=== PATIENT | male | born 1950 | race Caucasian/White ===

== ENCOUNTER 2016-03-05 18:50 | Inpatient (IN) ==
--- NOTE | 2016-03-05 19:33 | Emergency Department Note ---
Disposition Clinical Impression: Hilar mass, Pathologic rib fracture Saddle embolism of pulmonary artery Qualifiers: Chronicity: acute Acute cor pulmonale presence: without acute cor pulmonale Qualified Code(s): I26.92 - Saddle embolus of pulmonary artery without acute cor pulmonale DVT (deep venous thrombosis) Qualifiers: DVT location: lower extremity Affected thrombotic vein of extremity: unspecified vein of extremity Laterality: right Chronicity: acute Qualified Code (s): I82.401 - Acute embolism and thrombosis of unspecified deep veins of right lower extremity Disposition: Admitted As Inpatient Condition: Fair Referrals: Linette Teran DO [Primary Care Provider] - Forms: ED Satisfaction Letter General Adult HPI - General Chief complaint: ED Extremity Problem,Nontraumatic Stated complaint: POSS DVT RLE Time Seen by Provider: 03/05/16 19:26 Source: patient, family Mode of arrival: ambulatory Limitations: no limitations Nursing Notes Reviewed: Yes Vital Signs Reviewed: Yes - History of Present Illness HPI Narrative: 65 y/o male w/ 3 days of RLE pain/swelling. Went to PCP who diagnosed DVT by [facility]/ [facility] at [facility] in [place]. Was told to be evaluated by a higher level of care so he presented to our emergency department. In further discussion with the patient he does admit to approximately one week of dyspnea. He denies any chest pain. Past medical history significant for atrial fibrillation, diabetes , hypertension, hyperlipidemia. He is not anticoagulated for his atrial fibrillation. His dyspnea is worse with exertion. He does have a significant history of right lung cancer for which she had a lobectomy approximately a year and a half ago in [place]. He denies any current cough or sputum production. Radiation: non-radiation Pain Scale: 2 Associated symptoms: Reports: denies other symptoms Treatments Prior to Arrival: none - Related Data Allergies Allergy/AdvReac Type Severity Reaction Status Date / Time metronidazole [From Flagyl] AdvReac Rash Verified 03/05/16 19:03 All systems ED: reviewed and negative except as stated. Eyes: Denies: vision change ENT ED: Denies: throat pain Cardiovascular: Reports: dyspnea on exertion Respiratory: Reports: dyspnea. Denies: cough Gastrointestinal: Denies: abdominal pain, nausea, vomiting Genitourinary: Denies: dysuria Musculoskeletal: Denies: back pain Integumentary: Denies: rash Neurological: Denies: headache Past Medical History - Past Medical History Medical history: Reports: atrial fibrillation, cancer, DVT, diabetes, hypertension Psychiatric history: Reports: no psych history - Social History Smoking Status: Former smoker Smokeless Tobacco Status: No Alcohol use: Reports: none Drug use: Reports: none Physical Exam - General Limitations: no limitations General appearance: alert, in no apparent distress - Head Head exam: atraumatic - Eye Eye exam: Present: normal appearance, PERRL, EOMI - ENT ENT exam: normal exam, normal oropharynx - Neck Neck exam: Present: normal inspection, full ROM - Chest Chest inspection: Present: normal inspection - Respiratory Respiratory exam: Present: other (diminished breath sounds in RLL). Absent: respiratory distress, wheezes - Cardiovascular Cardiovascular exam: Present: regular rate - Abdominal Exam Abdominal exam: Present: soft, Non-Tender - Extremities Exam Extremities exam: Present: other (pain on palpatin of right calf. Minimal edema. Pulses intact and symmetrical bilaterally. Good cap refill.) - Neurological Exam Neurological exam: Present: alert, oriented X3, CN II-XII intact - Psychiatric Psychiatric exam: Present: normal affect, normal mood - Skin Skin exam: Present: warm, dry Course Course Narrative: The patient is in absolutely no distress. He is asking when he gets to go home. Due to his dyspnea I concern for pulmonary embolism so we will obtain a CTA of the chest. I will also obtain basic cardiac labs for further workup of etiologies of dyspnea. Will obtain records for [facility]. Normal vitals, not hypoxic/tachy. - Reevaluation(s) Reevaluation #1: Called by radiology due to saddle embolism. Also a hilar mass with associated 5th rib fracture. He is hemodynamically stable with minimal symptoms. Will call for admission and start anticoagulation. Accepted for admission by [facility]. Vital Signs Temperature 98.1 F 03/05/16 19:03 Pulse Rate 88 03/05/16 19:03 Respiratory Rate 18 03/05/16 19:03 Blood Pressure 131/70 03/05/16 19:03 O2 Sat by Pulse Oximetry 95 03/05/16 19:03 Temperature 98.1 F 03/05/16 19:03 Pulse Rate 88 03/05/16 19:03 Respiratory Rate 18 03/05/16 19:03 Blood Pressure 131/70 03/05/16 19:03 O2 Sat by Pulse Oximetry 95 03/05/16 19:03 Oxygen Delivery Oxygen Delivery Room Air Medical Decision Making - Medical Records Medical records reviewed: Yes I reviewed the patient's medical records. - Lab Data Lab results reviewed: Yes I reviewed the patient's lab results. Result diagrams: 03/05/16 19:51 03/05/16 19:51 Lab Results 03/05/16 03/05/16 03/05/16 Range/Units 19:51 19:51 19:51 WBC 11.1 (4.3-11.1) K/mcL RBC 4.98 (4.19-5.50) M/mcL Hgb 14.6 (12.9-16.9) g/dL Hct 42.3 (37.5-50.1) % MCV 84.9 (83.0-100.0) fL MCH 29.3 (28.0-33.3) pg MCHC 34.5 (31.6-35.5) g/dL RDW 12.6 (11.5-14.5) % Plt Count 202 (140-400) K/mcL MPV 9.2 L (9.4-12.4) fL Immature Gran % 0.4 (0-4) % Seg Neutrophils % 57.7 % Lymphocytes % 30.9 % Monocytes % 7.3 % Eosinophils % 3.3 % Basophils % 0.4 % Neutrophils # 6.4 (1.6-8.9) K/mcL Lymphocytes # 3.4 (0.6-4.6) K/mcL Monocytes # 0.8 (0.0-1.3) K/mcL Eosinophils # 0.4 (0.0-0.6) K/mcL Basophils # 0.0 (0.0-0.2) K/mcL PT 12.5 H (9.4-12.1) Seconds INR 1.2 APTT 27.4 (26.0-36.0) Seconds Sodium 138 (136-145) mEq/L Potassium 4.3 (3.5-4.5) mEq/L Chloride 105 (98-109) mEq/L Carbon Dioxide 21 (19-29) mEq/L BUN 14 (8-26) mg/dL Creatinine 1.04 (0.72-1.25) mg/dL Est GFR ( Amer) > 60 (> 60) Est GFR (Non-Af Amer) > 60 (> 60) BUN/Creatinine Ratio 13 (6-26) Glucose 249 H (70-99) mg/dL Calculated Osmolality 295 (280-300) Calcium 9.7 (8.6-10.8) mg/dL Troponin I (0-0.03) ng/mL B-Natriuretic Peptide (0-100) pg/mL 03/05/16 03/05/16 Range/Units 19:51 19:51 WBC (4.3-11.1) K/mcL RBC (4.19-5.50) M/mcL Hgb (12.9-16.9) g/dL Hct (37.5-50.1) % MCV (83.0-100.0) fL MCH (28.0-33.3) pg MCHC (31.6-35.5) g/dL RDW (11.5-14.5) % Plt Count (140-400) K/mcL MPV (9.4-12.4) fL Immature Gran % (0-4) % Seg Neutrophils % % Lymphocytes % % Monocytes % % Eosinophils % % Basophils % % Neutrophils # (1.6-8.9) K/mcL Lymphocytes # (0.6-4.6) K/mcL Monocytes # (0.0-1.3) K/mcL Eosinophils # (0.0-0.6) K/mcL Basophils # (0.0-0.2) K/mcL PT (9.4-12.1) Seconds INR APTT (26.0-36.0) Seconds Sodium (136-145) mEq/L Potassium (3.5-4.5) mEq/L Chloride (98-109) mEq/L Carbon Dioxide (19-29) mEq/L BUN (8-26) mg/dL Creatinine (0.72-1.25) mg/dL Est GFR ( Amer) (> 60) Est GFR (Non-Af Amer) (> 60) BUN/Creatinine Ratio (6-26) Glucose (70-99) mg/dL Calculated Osmolality (280-300) Calcium (8.6-10.8) mg/dL Troponin I 0.00 (0-0.03) ng/mL B-Natriuretic Peptide 22 (0-100) pg/mL - Radiology Data Radiology results reviewed: Yes I reviewed the patient's radiology results. - EKG Data EKG #1 EKG attestation: Yes I reviewed and interpreted this EKG. EKG shows normal: sinus rhythm Rate: normal Rhythm: NSR [place]/QRS: normal Interpretation: no acute changes Critical Care Time Critical Care Time: Yes Total Critical Care Time: 40 Attestation: Critical care performed: Time is exclusive of separately billable procedures. Time includes: direct patient care, patient reassessment, coordination of patient care, interpretation of data (laboratory data, radiology data, and respiratory data), review of patient's medical records, medical consultation and documentation of patient care. Procedures included in critical care time: Procedures excluded from critical care time: Attestation Statement - Attestation Attestation: I, Adis Cherry MD, personally performed a history and physical exam of the patient and discussed their management with the resident. I reviewed the resident's note and agree with the documented findings, medical decision making , and plan of care. 65-year-old male who presents complaining of right calf pain and swelling of the right lower leg for 3 days prior to arrival. He was seen by his PCP and had an outpatient Doppler study of the right leg earlier today at another facility which was positive for DVT in the right calf. He has a prior history of DVT in the same calf several years ago which was treated with Coumadin. He is no longer on anticoagulants. He was prescribed Xarelto by his PCP today but has not started the medication yet. He was advised by his PCP to come here for further evaluation because apparently the report from the DVT study said that the thrombus was mobile. According to patient his PCP was concerned that he might have vascular surgeon. Patient does admit to some intermittent shortness of breath over the past few weeks. No chest pain or palpitations. No fever. On examination the patient is a well-developed well-nourished well-appearing elderly male in no acute distress. He is alert and oriented 3. There is no cyanosis or diaphoresis. Breath sounds are clear and equal bilaterally. Heart regular rate and rhythm. Abdomen soft and nontender normal bowel sounds. The right calf is swollen and is 4 cm larger than the left calf. There is some mild posterior mid calf tenderness with no palpable cords. No tenderness in the knee. There is no erythema or warmth to touch. EKG shows a normal sinus rhythm with a rate of 82 and nonspecific T-wave abnormality. Labs reviewed and unremarkable. CTA shows no pulmonary embolism with a saddle embolus. It also showed a right hilar mass or adenopathy with a fracture of the right fifth rib which on chest x-ray appeared to be a pathologic fracture. Patient was started on heparin in the emergency department. The hospitalist, Dr. Mesa, was consulted and accepted admission of the patient.
[2016-03-05 19:58] LABS: Basophils % 0.4 %; Eosinophils # 0.4 K/mcL (0.0-0.6); Eosinophils % 3.3 %; Hematocrit 42.3 % (37.5-50.1); Hemoglobin 14.6 g/dL (12.9-16.9); Immature Granulocytes % 0.4 % (0-4); Lymphocytes # 3.4 K/mcL (0.6-4.6); Lymphocytes % 30.9 %; Mean Corpuscular HGB Conc 34.5 g/dL (31.6-35.5); Mean Corpuscular Hemoglobin 29.3 pg (28.0-33.3); Mean Corpuscular Volume 84.9 fL (83.0-100.0); Mean Platelet Volume 9.2 fL (9.4-12.4); Monocytes # 0.8 K/mcL (0.0-1.3); Monocytes % 7.3 %; Neutrophils # 6.4 K/mcL (1.6-8.9); Platelet Count 202 K/mcL (140-400); Red Blood Count 4.98 M/mcL (4.19-5.50); Red Cell Distribution Width 12.6 % (11.5-14.5); Segmented Neutrophils % 57.7 %
[2016-03-05 20:07] LABS: INR 1.2; Prothrombin Time 12.5 Seconds (9.4-12.1)
[2016-03-05 20:10] LABS: Activated Partial Thrombo Time 27.4 Seconds (26.0-36.0)
[2016-03-05 20:12] LABS: BUN/Creatinine Ratio 13 (6-26); Blood Urea Nitrogen 14 mg/dL (8-26); Calcium 9.7 mg/dL (8.6-10.8); Carbon Dioxide 21 mEq/L (19-29); Chloride 105 mEq/L (98-109); Glucose 249 mg/dL (70-99); Osmolality,Calculated 295 (280-300); Potassium 4.3 mEq/L (3.5-4.5); Sodium 138 mEq/L (136-145); eGFR For African Americans > 60 (> 60); eGFR For Non-African Americans > 60 (> 60)
[2016-03-05] MEDS ORDERED: *HR* Heparin 5,000 UNIT/ML VIAL IVP ONE (21:18)
[2016-03-05] MEDS ORDERED: *HR* Heparin 5,000 UNIT/ML VIAL IVP PRN ×2 (21:18)
[2016-03-05] MEDS: Heparin 25,000 UNIT/500 ML D5W 25,000 UNIT/500 ML MLS IVC SCH (21:43)
[2016-03-05] MEDS ORDERED: Ibuprofen 400 MG TABLET PO PRN (22:25)
[2016-03-05] MEDS ORDERED: *HR* HYDROcodone/Acet 5/325 mg TABLET PO PRN (22:25)
[2016-03-05] MEDS ORDERED: Naloxone 0.4 MG/ML INJ IVP PRN (22:25)
[2016-03-05] MEDS ORDERED: Ondansetron 4 MG/2 ML VIAL IVP PRN (22:25)
[2016-03-05] MEDS ORDERED: MOM Conc 10 ML UD.LIQ PO PRN (22:25)
--- NOTE | 2016-03-05 22:43 | Internal Med History&Physical ---
Date of Encounter: 03/06/16 Time of Encounter: 21:40 Assessment and Plan (1) DVT (deep venous thrombosis) Current visit: Yes Status: Acute PT with 3 day h/o RLE pain and swelling. Doppler done at [facility] in [place]. Pt 12.5 seconds, INR 1.2. Heparin bolus and gtt Monitor labs Continuous director cardiac Continuous pulse oximetry Bed rest Qualifiers: DVT location: lower extremity Affected thrombotic vein of extremity: unspecified vein of extremity Laterality: right Chronicity: acute Qualified Code(s): I82.401 - Acute embolism and thrombosis of unspecified deep veins of right lower extremity (2) Saddle embolism of pulmonary artery Current visit: Yes Status: Acute Pt and family were aware of saddle embolism. Treatment same as above for DVT Consult pulmonology Bed rest Qualifiers: Chronicity: acute Acute cor pulmonale presence: without acute cor pulmonale Qualified Code(s): I26.92 - Saddle embolus of pulmonary artery without acute cor pulmonale (3) Hilar mass Current visit: Yes Status: Acute I requested that ER fax a consent to [facility] to compare his last chest CT with today's. At this time we are unable to make that comparison. Family is aware of adenopathy and saddle embolus. Consult pulmonary Internal Medicine - H&P: HPI Admitted From: Home Plans for Post Hospital Care: Home History of present illness: Mr. Saldaña is a 65 year old male with history of R lung ca with lobectomy, RLE DVT, and saddle embolus presents for admission from [facility]. Pt dx with RLE DVT today at [facility]. Pt has 3 day h/o RLE pain and swelling. Past Med Surg Social Fam HX - Past Medical History Medical history: atrial fibrillation, cancer, DVT, diabetes, hypertension Psychiatric history: no psych history - Social History Smoking Status: Former smoker Smokeless Tobacco Status: No Alcohol use: none Drug use: none - Family History Mother Living Status: Age at : 73 Cause of : Renal failure Hx Family Endocrine Disorder: Yes (DM) Hx Family Medical Disorders: Yes (CKD) Internal Medicine - H&P: Meds Cholecalciferol (D-3) [Vitamin D] 1,000 unit PO DAILY 03/06/16 [History] Flecainide Acetate [Flecainide Acetate] 100 mg PO BID 03/06/16 [History] Metformin HCl [Metformin HCl] 1,000 mg PO BID 03/06/16 [History] Metoprolol [Lopressor] 50 mg PO BID 03/06/16 [History] Pravastatin Sodium [Pravastatin Sodium] 20 mg PO DAILY 03/06/16 [History] RX: Aspirin 81 mg PO DAILY 03/06/16 [History] RX: Glimepiride [Amaryl] 4 mg PO QAM 03/06/16 [History] RX: Insulin Lispro Protamin/Lispro [Humalog Mix 75-25 Vial] 0 unit SQ TIDWM [History] RX: Omeprazole [PriLOSEC] 20 mg PO BID 03/06/16 [History] Allergies metronidazole [From Flagyl] Adverse Reaction (Verified 03/05/16 19:03) Rash All Systems PM: A 10-system review of systems was performed and is negative for pertinent findings except as documented above in the HPI. - Constitutional Constitutional: no chills, no fever(s), no lethargy, no weakness - Cardiovascular Cardiovascular ROS IM: no chest pain, no dyspnea, no edema, no lightheadedness - Respiratory Respiratory: no dyspnea, no dyspnea on exertion, no pain on inspiration - Gastrointestinal Gastrointestinal: no diarrhea, no nausea, no vomiting - Musculoskeletal Musculoskeletal ROS IM: no joint swelling, no muscle weakness - Constitutional Vitals: Temp Pulse Resp BP Pulse Ox 98.1 F 88 18 138/86 95 03/05/16 19:03 03/05/16 19:03 03/05/16 21:46 03/05/16 21:46 03/05/16 19:03 General appearance: Present: A&O X 3, pleasant, no acute distress - Head Head exam: Present: normal inspection - ENT ENT exam: Present: mucous membranes moist - Neck Neck exam general surgery: Absent: lymphadenopathy, tenderness - Respiratory Respiratory exam: Present: CTAB. Absent: chest wall tenderness, decreased breath sounds, rales, respiratory distress, rhonchi, wheezes - Cardiovascular Cardiovascular exam: Present: RRR, +S1, +S2. Absent: diastolic murmur, JVD, systolic murmur - GI/Abdominal GI/Abdominal exam: Present: distended, firm, normal bowel sounds. Absent: tenderness - Extremities Exam Extremities exam: Present: normal capillary refill, pedal edema, tenderness, warm Additional comments: Pt RLE sl larger than LLE. No redness or warmth noted to calf. +2 pedal pulse, no pedal edema. - Neurological Exam Neurological exam: Present: alert, oriented X3, strengths equal and symetr throughout, facial droop Internal Med - H&P Results - Labs CBC & Chem 7: 03/06/16 03:49 03/06/16 03:49 - VTE Reasons for not Prescribing Prophylaxis: Not indicated-Anticoagulated or INR therapeutic
--- NOTE | 2016-03-05 23:37 | Event Note ---
Date of Encounter: 03/05/16 Time of Encounter: 23:35 65 Y/O M admitted for R lung mass and Pulmonary embolism without heart strain Apparently , these findings are not new to this patient and his doctors. However, we cannot assume without imaging if his r hilar mass is increased in size, or there are newer masses Obtain records/imaging from previous care provider. Continue heparin drip and consult pulmonary Rest of details as in DEFENCE INTELLIGENCE ANALYST's documentation
[2016-03-06 04:00] LABS: Basophils % 0.3 %; Eosinophils # 0.5 K/mcL (0.0-0.6); Eosinophils % 4.2 %; Hematocrit 42.6 % (37.5-50.1); Hemoglobin 14.6 g/dL (12.9-16.9); Immature Granulocytes % 0.5 % (0-4); Lymphocytes # 5.2 K/mcL (0.6-4.6); Lymphocytes % 48.1 %; Mean Corpuscular HGB Conc 34.3 g/dL (31.6-35.5); Mean Corpuscular Hemoglobin 29.6 pg (28.0-33.3); Mean Corpuscular Volume 86.4 fL (83.0-100.0); Mean Platelet Volume 9.4 fL (9.4-12.4); Monocytes # 0.9 K/mcL (0.0-1.3); Monocytes % 8.7 %; Neutrophils # 4.2 K/mcL (1.6-8.9); Platelet Count 191 K/mcL (140-400); Red Blood Count 4.93 M/mcL (4.19-5.50); Red Cell Distribution Width 12.7 % (11.5-14.5); Segmented Neutrophils % 38.2 %
[2016-03-06 04:07] LABS: INR 1.1; Prothrombin Time 12.3 Seconds (9.4-12.1)
[2016-03-06 04:14] LABS: BUN/Creatinine Ratio 14 (6-26); Blood Urea Nitrogen 12 mg/dL (8-26); Calcium 9.7 mg/dL (8.6-10.8); Carbon Dioxide 22 mEq/L (19-29); Chloride 104 mEq/L (98-109); Glucose 199 mg/dL (70-99); Osmolality,Calculated 289 (280-300); Potassium 3.9 mEq/L (3.5-4.5); Sodium 137 mEq/L (136-145); eGFR For African Americans > 60 (> 60); eGFR For Non-African Americans > 60 (> 60)
[2016-03-06 04:17] LABS: Activated Partial Thrombo Time 62.6 Seconds (26.0-36.0)
--- NOTE | 2016-03-06 09:37 | Internal Med Progress Note ---
<Wyatt Morales - Last Filed: 03/06/16 16:04> Date of Encounter: 03/06/16 Time of Encounter: 09:37 - Assessment and plan (1) Saddle embolism of pulmonary artery Current Visit: Yes Status: Acute Assessment and plan: This is 2nd time he developed DVT/PE, unprovoked, hemodynamically stable, con't IV heparin, spoke to his cardiothoracic surgeon at [facility], no preference of anticoagulation choice upon discharge, will refer him to hem/onc after d/c for further hypercoagulable workup, likely will switch to xarelto upon discharge, he should be on this indefinitely. Qualifiers: Chronicity: acute Acute cor pulmonale presence: without acute cor pulmonale Qualified Code(s): I26.92 - Saddle embolus of pulmonary artery without acute cor pulmonale (2) History of lung cancer Current Visit: Yes Status: Acute Assessment and plan: S/p lobectomy at [facility] a year and half ago, last f/u with his primary cardiothoracic doctor was two months ago, CT of chest back then showed no increase in size of adenopathy, he will f/u with her after d/c. (3) DVT (deep venous thrombosis) Current Visit: Yes Status: Acute Assessment and plan: On R leg, con't heparin drip. Qualifiers: DVT location: lower extremity Affected thrombotic vein of extremity: unspecified vein of extremity Laterality: right Chronicity: acute Qualified Code(s): I82.401 - Acute embolism and thrombosis of unspecified deep veins of right lower extremity (4) DM (diabetes mellitus), type 2 Current Visit: Yes Status: Acute Assessment and plan: Accucheck with SSI, hold oral antidiabetic meds. Qualifiers: Qualified Code(s): E11.9 - Type 2 diabetes mellitus without complications - Subjective Interval history: Pt seen and examined, denies SOB, hemoptysis or chest pain. - Constitutional Vitals: Temp Pulse Resp BP Pulse Ox 97.8 F 78 18 119/77 96 03/06/16 06:00 03/06/16 06:00 03/06/16 06:00 03/06/16 06:00 03/06/16 06:00 General appearance: Present: A&O X 3, pleasant, no acute distress - Head Head exam: Present: atraumatic, normocephalic - Eye Eye exam: Present: PERRL, conjuntiva pink, sclera anicteric Pupils: Present: PERRL - Neck Neck exam general surgery: Present: supple, trachea midline. Absent: lymphadenopathy - Respiratory Respiratory exam: Present: decreased breath sounds (mildly at base b/l). Absent : accessory muscle use, rales, rhonchi, wheezes - Cardiovascular Cardiovascular exam: Present: RRR, +S1, +S2. Absent: diastolic murmur, gallop, rubs, systolic murmur - GI/Abdominal GI/Abdominal exam: Present: normal bowel sounds, soft, no peritoneal signs. Absent: distended, tenderness - Extremities Exam Extremities exam: Present: warm, radial pulses palpable and symetrical. Absent : calf tenderness, cyanotic, pedal edema - Neurological Exam Neurological exam: Present: CN II-XII intact, oriented X3, no focal deficits. Absent: pronater drift, facial droop, speech deficit - Skin Skin exam: Present: dry, intact Internal Medicine: Result - Labs CBC & Chem 7: 03/06/16 03:49 03/06/16 03:49 Labs: Short CBC 03/06/16 Range/Units 03:49 WBC 10.8 (4.3-11.1) K/mcL Hgb 14.6 (12.9-16.9) g/dL Hct 42.6 (37.5-50.1) % Plt Count 191 (140-400) K/mcL Neutrophils # 4.2 (1.6-8.9) K/mcL BMP 03/06/16 03:49 Sodium 137 Potassium 3.9 Chloride 104 Carbon Dioxide 22 BUN 12 Creatinine 0.88 Glucose 199 H Calcium 9.7 - ABG Interpretation ABG results: PT/INR, D-dimer PT 12.3 Seconds (9.4-12.1) H 03/06/16 03:49 - VTE Reasons for not Prescribing Prophylaxis: Not indicated-Anticoagulated or INR therapeutic Consult Discharge Plan - Plan Instructions: Pulmonary Embolism (DC), Rib Fracture (DC), Rib Fracture (GEN) Referrals: Linette Teran DO [Primary Care Provider] - <Hugh Peguero - Last Filed: 03/06/16 19:36> Date of Encounter: 03/06/16 - Assessment and plan (1) Saddle embolism of pulmonary artery Current Visit: Yes Status: Acute Qualifiers: Chronicity: acute Acute cor pulmonale presence: without acute cor pulmonale Qualified Code(s): I26.92 - Saddle embolus of pulmonary artery without acute cor pulmonale (2) DVT (deep venous thrombosis) Current Visit: Yes Status: Acute Qualifiers: DVT location: lower extremity Affected thrombotic vein of extremity: unspecified vein of extremity Laterality: right Chronicity: acute Qualified Code(s): I82.401 - Acute embolism and thrombosis of unspecified deep veins of right lower extremity (3) DM (diabetes mellitus), type 2 Current Visit: Yes Status: Acute Qualifiers: Diabetes mellitus complication status: with hyperglycemia Diabetes mellitus director long term care insulin use: without longterm use Qualified Code(s): E11.65 - Type 2 diabetes mellitus with hyperglycemia (4) History of lobectomy of lung Current Visit: Yes Status: Chronic (5) History of lung cancer Current Visit: Yes Status: Acute - Constitutional Vitals: Temp Pulse Resp BP Pulse Ox 98.2 F 88 18 119/72 96 03/06/16 16:22 03/06/16 16:22 03/06/16 16:22 03/06/16 16:22 03/06/16 16:22 Internal Medicine: Result - Labs CBC & Chem 7: 03/06/16 03:49 03/06/16 03:49 Labs: Short CBC 03/06/16 Range/Units 03:49 WBC 10.8 (4.3-11.1) K/mcL Hgb 14.6 (12.9-16.9) g/dL Hct 42.6 (37.5-50.1) % Plt Count 191 (140-400) K/mcL Neutrophils # 4.2 (1.6-8.9) K/mcL BMP 03/06/16 03:49 Sodium 137 Potassium 3.9 Chloride 104 Carbon Dioxide 22 BUN 12 Creatinine 0.88 Glucose 199 H Calcium 9.7 - ABG Interpretation ABG results: PT/INR, D-dimer PT 12.3 Seconds (9.4-12.1) H 03/06/16 03:49 - Attending Attestation I examined this patient and my medical decision-making was reviewed with the Resident Physician on 03/06/16. I agree with the documented findings, disposition and treatment plan as described except to the extent set forth below. Mr. Mcrae is currently admitted for acute DVT and saddle pulmonary embolus. He is high risk due to potential worsening of symptoms and significance of saddle embolus. Mr. Mcrae is feeling OK at this time. No pain. No worsening of dyspnea. He is concerned about CT reading. He follows at [facility]. Has hx of prior DVT. Exam Alert. Comfortable No wheeze Heart reg No edema I/P 1. Acute DVT 2. Saddle PE 3. Hx lung CA Further diagnoses and plan as above.
--- NOTE | 2016-03-06 11:55 | Electrocardiograph Report ---
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
[2016-03-06] MEDS: METOPROLOL TARTRATE 25 MG PO SCH ×2 (15:13→19:55)
[2016-03-06] MEDS: Heparin 25,000 UNIT/500 ML D5W 25,000 UNIT/500 ML MLS IVC SCH (15:14)
[2016-03-06] MEDS ORDERED: *HR* Dextrose 50 % in Water (Syg) 50 ML SYRINGE IVP PRN (15:21)
[2016-03-06] MEDS ORDERED: Dextrose Gel 15 GM PO PRN ×2 (15:21)
[2016-03-06] MEDS ORDERED: D5% in Water 1,000 ML IV PRN (15:21)
[2016-03-06] MEDS: Aspirin 81 MG TAB.CHEW PO SCH (16:53)
[2016-03-06] MEDS: Insulin LISPRO 300 UNITS/3 ML VIAL SQ SCH (16:55)
[2016-03-06] MEDS: Acetaminophen 325 MG TABLET PO PRN (20:01)
[2016-03-06] MEDS ORDERED: Insulin LISPRO 300 UNITS/3 ML VIAL SQ SCH (21:00)
[2016-03-07] MEDS: Cholecalciferol (D-3) 1,000 UNIT TABLET PO SCH (09:33)
[2016-03-07] MEDS: Acetaminophen 325 MG TABLET PO PRN (09:33)
[2016-03-07] MEDS: Insulin LISPRO 300 UNITS/3 ML VIAL SQ SCH ×3 (09:33→17:50)
[2016-03-07] MEDS: Aspirin 81 MG TAB.CHEW PO SCH (09:33)
[2016-03-07] MEDS: METOPROLOL TARTRATE 25 MG PO SCH ×2 (09:34→21:20)
[2016-03-07] MEDS ORDERED: Insulin LISPRO 300 UNITS/3 ML VIAL SQ SCH (09:52)
--- NOTE | 2016-03-07 10:16 | Discharge Summary ---
<Wyatt Morales - Last Filed: 03/07/16 13:54> Date of Encounter: 03/07/16 Time of Encounter: 10:16 - Discharge Diagnosis (1) Saddle embolism of pulmonary artery Priority: Primary Status: Acute Qualifiers: Chronicity: acute Acute cor pulmonale presence: without acute cor pulmonale Qualified Code(s): I26.92 - Saddle embolus of pulmonary artery without acute cor pulmonale (2) History of lung cancer Priority: Secondary Status: Acute (3) DVT (deep venous thrombosis) Priority: Secondary Status: Acute Qualifiers: DVT location: lower extremity Affected thrombotic vein of extremity: unspecified vein of extremity Laterality: right Chronicity: acute Qualified Code(s): I82.401 - Acute embolism and thrombosis of unspecified deep veins of right lower extremity (4) DM (diabetes mellitus), type 2 Priority: Secondary Status: Acute Qualifiers: Diabetes mellitus complication status: with hyperglycemia 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 insulin use: without care home use Qualified Code(s): E11.65 - Type 2 diabetes mellitus with hyperglycemia - Discharge Medications Home Medications: Aspirin 81 mg PO DAILY 03/06/16 [History] Cholecalciferol (D-3) [Vitamin D] 1,000 unit PO DAILY 03/06/16 [History] Flecainide Acetate 100 mg PO BID 03/06/16 [History] Glimepiride [Amaryl] 4 mg PO QAM 03/06/16 [History] Insulin Lispro Protamin/Lispro [Humalog Mix 75-25 Vial] 0 unit SQ TIDWM [History] Metformin HCl 1,000 mg PO BID 03/06/16 [History] Metoprolol [Lopressor] 50 mg PO BID 03/06/16 [History] Omeprazole [PriLOSEC] 20 mg PO BID 03/06/16 [History] Pravastatin Sodium 20 mg PO DAILY 03/06/16 [History] Rivaroxaban [Xarelto] 15 mg PO BID tablet 03/07/16 [Rx] Allergies/Adverse Reactions: Allergies metronidazole [From Flagyl] Adverse Reaction (Verified 03/05/16 19:03) Rash Date of admission: 03/05/16 21:57 Primary care physician: Linette Teran Discharging clinician: Wyatt Morales Anticipated date of discharge: 01/20/17 - Patient Status Disposition: Home, Self-Care Condition: Fair Functional capacity at discharge: uses cane/walker (fall precaution) Overall status at discharge: patient is progressing back to baseline - Discharge Instructions Instructions: Rivaroxaban (By mouth), Pulmonary Embolism (DC), Rib Fracture (DC ), Rib Fracture (GEN) Follow Up With: Linette Teran DO [Primary Care Provider] - 03/14/16 10:30 am (F/u with PCP in a week for hospital d/c f/u, this is 2nd time he got DVT/PE, need further hypercoagulable workup or referral to hematology/oncology, f/u on uncontrolled DM II) Flores Aguirre MD [Non-Partnered Physician] - (Please schedule an appointment to see his primary cardiothoracic surgeon and bring imaging CD from [place] to her to compare CT chest image that [facility] has from two months ago, f /u on hx of lung cancer and adenopathy) - Diet and Activity Activity: resume usual activities as tolerated Diet: diabetic diet, low fat, low cholesterol Hospital course: Mr. Mcrae is a 65 year old male with hx of lung cancer and DVT, came in with right calf pain, found to have DVT in the leg, CTA of chest showed saddle PE, he was started on heparin IV drip, he was hemodynamically stable during this hospital stay, last times when he had DVT, he was on coumadin previouly, he routinely sees his cardiothoracic surgeon at [facility], last times he saw her was two months ago, he was told that CT of chest done back then did not show increase in size of adenopathy, he felt better after he was started on IV heparin, he will be discharged today in stable condition, he was transitioned from IV heparin to xarelto, he needs to be on this anticoagulation indefinitely. - Time Spent with Patient Total time spent providing and/or coordinating discharge services: - Constitutional Vitals: Temp Pulse Resp BP Pulse Ox 97.8 F 74 15 118/65 95 03/07/16 07:47 03/07/16 07:47 03/07/16 07:47 03/07/16 07:47 03/07/16 07:47 General appearance: Present: cooperative, A&O X 3, pleasant, no acute distress, answers questions appropriately - Head Head exam: Present: atraumatic, normocephalic - Eye Eye exam: Present: PERRL, conjuntiva pink, sclera anicteric Pupils: Present: PERRL - Neck Neck exam general surgery: Present: supple, trachea midline. Absent: lymphadenopathy - Respiratory Respiratory exam: Present: CTAB. Absent: accessory muscle use, rales, rhonchi, wheezes - Cardiovascular Cardiovascular exam: Present: RRR, +S1, +S2. Absent: diastolic murmur, gallop, rubs, systolic murmur - GI/Abdominal GI/Abdominal exam: Present: normal bowel sounds, soft, no peritoneal signs. Absent: distended, tenderness - Extremities Exam Extremities exam: Present: warm, radial pulses palpable and symetrical. Absent : calf tenderness, cyanotic, pedal edema - Neurological Exam Neurological exam: Present: CN II-XII intact, oriented X3, no focal deficits. Absent: pronater drift, facial droop, speech deficit - Skin Skin exam: Present: dry, intact - VTE Reasons for not Prescribing Prophylaxis: Not indicated-Anticoagulated or INR therapeutic <Hugh Peguero - Last Filed: 03/07/16 18:40> Date of Encounter: 03/07/16 - Discharge Diagnosis (1) Saddle embolism of pulmonary artery Status: Acute Qualifiers: Chronicity: acute Acute cor pulmonale presence: without acute cor pulmonale Qualified Code(s): I26.92 - Saddle embolus of pulmonary artery without acute cor pulmonale (2) DVT (deep venous thrombosis) Status: Acute Qualifiers: DVT location: lower extremity Affected thrombotic vein of extremity: unspecified vein of extremity Laterality: right Chronicity: acute Qualified Code(s): I82.401 - Acute embolism and thrombosis of unspecified deep veins of right lower extremity (3) DM (diabetes mellitus), type 2 Status: Acute Qualifiers: Diabetes mellitus complication status: with hyperglycemia Diabetes mellitus care home insulin use: without care home use Qualified Code(s): E11.65 - Type 2 diabetes mellitus with hyperglycemia (4) History of lobectomy of lung Status: Chronic (5) History of lung cancer Status: Acute Procedures/tests Complete & Pending: Procedures Performed prior 72 hours Category Date Time Status EV echocardiogram Stat Y 03/07/16 15:33 Completed Date of admission: 03/05/16 21:57 Primary care physician: Linette Teran Consults: 03/07/16 10:25 Consult to Interventional Tech [CONS] Routine Reason for SW Consult: xarelto gao check Hospital course: Mr. Mcrae is a 65 year old male - Time Spent with Patient Total time spent providing and/or coordinating discharge services: 39min - Constitutional Vitals: Temp Pulse Resp BP Pulse Ox 97.9 F 71 15 117/69 95 03/07/16 11:50 03/07/16 11:50 03/07/16 11:50 03/07/16 11:50 03/07/16 11:50 - Attending Attestation I examined this patient and my medical decision-making was reviewed with the Resident Physician on 03/07/16. I agree with the documented findings, disposition and treatment plan as described except to the extent set forth below. Mr. Mcrae feels better overall. He is still very dyspneic when moving around though his oxygen saturation is not low. Denies chest pain. Plan for d/c home with oxygen (self pay). Exam Alert. Comfortable Heart reg No wheeze Plan D/C Echo prior to discharge Xarelto approved Home oxygen - will arrange. Addendum: Unable to full arrange tonight so will d/c in AM when echo results obtained.
[2016-03-07] MEDS: *HR* Rivaroxaban 15 MG TABLET PO SCH (14:57)
[2016-03-07] MEDS ORDERED: FLU VACC QS2016-17 36MOS UP/PF 0.5 ML SYRINGE IM ONE (15:20)
[2016-03-08 07:27] VITALS: BP 107/78
--- NOTE | 2016-03-08 07:58 | ECHO - Doppler Report ---
Echocardiogram Name: Yao Saldaña Date of Study: 03/07/2016 Date: 1950 Ht: 69.0 in Medical Record#: [id number] Age: 65 Wt: 216.0 lb Gender: Male BSA: 2.13 Order #: [id number] Location: [facility] Room #: [id number] Reading Physician: David Patel DO, KIM, TOD SHARMA Zipper Repairer: Izzy Aragon RDCS Ordering Physician: Wyatt Morales DO Primary Physician: Linette Teran DO Indications: Shortness of breath, Pulmonary embolus Impressions: LVEF 60%. Normal LV chamber size, wall thickness and function. Mild left ventricular diastolic dysfunction. Normal right ventricular structure and function. Unable to estimate RVSP due to lack of adequate TR jet. No significant valvular dysfunction. Left Ventricular Wall Motion: Rest Echo Findings All wall segments showed normal motion. Findings: Study Quality * Technically adequate exam. ECG Findings * Normal sinus rhythm. Left Ventricle * LVEF 60%. * Normal LV chamber size, wall thickness and function. * Mild left ventricular diastolic dysfunction. Right Ventricle * Normal right ventricular structure and function. Left Atrium * Normal left atrial size. Right Atrium * Normal right atrial size. Interatrial Septum * Interatrial septum not well evaluated. Aortic Valve * Aortic valve not well visualized. * Grossly, the area of the noncoronary cusp appeared mildly sclerotic. * No aortic regurgitation. * No aortic stenosis. Mitral Valve * Mild mitral annular calcification. * Mildly thickened mitral valve leaflets. * No mitral stenosis. * No mitral regurgitation. Tricuspid Valve * Normal tricuspid valve structure and function. * No tricuspid regurgitation. * Unable to estimate RVSP due to lack of adequate TR jet. Pulmonic Valve * Pulmonic valve not well visualized. Aorta * Normally sized aortic root. Pericardium * The pericardium appears normal. IVC * The IVC is not well evaluated. Pulmonary Artery * Pulmonary artery not well visualized. History Hypertension Diabetes Family History of CAD Measurements: BP: 117/ 69 2D Normal Values RVIDd: 2.88 cm <2.7 cm IVSd: .63 cm 0.6 - 1.0 cm LVIDd: 4.76 cm 3.7 - 5.6 cm LVPWd: .83 cm 0.6 - 1.1 cm LVIDs: 2.52 cm 1.5 - 3.6 cm AO: 2.50 cm < 4.0 cm LA: 3.40 cm 2.0 - 4.0cm %FS: 47.10 cm >25 % LA volume: 29 Mitral Valve Peak E:.70 m/sec Peak A:.78 m/sec E/A Ratio:0.9 Peak E' Lat Vicente:7.18 cm/s Peak E' Med Vicente:7.83 cm/s E/E' Lat Ratio:9.7 E/E' Med Ratio:8.9 Tricuspid Valve TV Regurg Peak Grad: 5.00mmHg TV Regurg Peak Vicente: 1.07m/sec Updated by David Patel DO, FACKenia, EDITH, TOD on 03/08/2016 7:51:24 AM electronically signed on 03/08/2016 7:51:51 AM with status of Final Wall Motion Robles: 1=Normal, 2=Hypokinesis, 3=Akinesis, 4=Dyskinesis, 5=Aneurysmal, 6=Hyperkinetic, X=Not Visualized (Blank)=Missing
--- NOTE | 2016-03-08 08:13 | Internal Med Progress Note ---
Addendum entered and electronically signed by Luis Morales DO 03/08/16 18:37: Original Note: <Luis Morales - Last Filed: 03/08/16 11:33> Date of Encounter: 03/08/16 Time of Encounter: 08:13 - Assessment and plan (1) Saddle embolism of pulmonary artery Status: Acute Assessment and plan: This is 2nd time he developed DVT/PE, unprovoked, hemodynamically stable, con't IV heparin, spoke to his cardiothoracic surgeon at [facility], no preference of anticoagulation choice upon discharge, will refer him to hem/onc after d/c for further hypercoagulable workup, switched to xarelto, he should be on this indefinitely, echo was ordered and it was normal, he did not qualify for home oxygen but he would like to pay out of pocket to have one at home, discharge today. Qualifiers: Chronicity: acute Acute cor pulmonale presence: without acute cor pulmonale Qualified Code(s): I26.92 - Saddle embolus of pulmonary artery without acute cor pulmonale (2) History of lung cancer Status: Acute Assessment and plan: S/p lobectomy at [facility] a year and half ago, last f/u with his primary cardiothoracic doctor was two months ago, CT of chest back then showed no increase in size of adenopathy, he will f/u with her after d/c. (3) DVT (deep venous thrombosis) Status: Acute Assessment and plan: On R leg, con't heparin drip. Qualifiers: DVT location: lower extremity Affected thrombotic vein of extremity: unspecified vein of extremity Laterality: right Chronicity: acute Qualified Code(s): I82.401 - Acute embolism and thrombosis of unspecified deep veins of right lower extremity (4) DM (diabetes mellitus), type 2 Status: Acute Assessment and plan: Accucheck with SSI, hold oral antidiabetic meds. Qualifiers: Diabetes mellitus complication status: with hyperglycemia Diabetes mellitus alf insulin use: without continuous churn buttermaker use Qualified Code(s): E11.65 - Type 2 diabetes mellitus with hyperglycemia - Subjective Interval history: Pt seen and examined, denies SOB, hemoptysis or chest pain. - Constitutional Vitals: Temp Pulse Resp BP Pulse Ox 98.3 F 77 15 107/78 95 03/08/16 07:00 01/21/17 07:00 03/08/16 07:00 03/08/16 07:00 03/08/16 07:00 General appearance: Present: cooperative, A&O X 3, pleasant, no acute distress, answers questions appropriately - Head Head exam: Present: atraumatic, normocephalic - Eye Eye exam: Present: PERRL, conjuntiva pink, sclera anicteric Pupils: Present: PERRL - Neck Neck exam general surgery: Present: supple, trachea midline. Absent: lymphadenopathy - Respiratory Respiratory exam: Present: CTAB. Absent: accessory muscle use, rales, rhonchi, wheezes - Cardiovascular Cardiovascular exam: Present: RRR, +S1, +S2. Absent: diastolic murmur, gallop, rubs, systolic murmur - GI/Abdominal GI/Abdominal exam: Present: normal bowel sounds, soft, no peritoneal signs. Absent: distended, tenderness - Extremities Exam Extremities exam: Present: warm, radial pulses palpable and symetrical. Absent : calf tenderness, cyanotic, pedal edema - Neurological Exam Neurological exam: Present: CN II-XII intact, oriented X3, no focal deficits. Absent: pronater drift, facial droop, speech deficit - Skin Skin exam: Present: dry, intact Internal Medicine: Result - Labs CBC & Chem 7: 03/06/16 03:49 03/06/16 03:49 - ABG Interpretation ABG results: PT/INR, D-dimer PT 12.3 Seconds (9.4-12.1) H 03/06/16 03:49 - VTE Reasons for not Prescribing Prophylaxis: Not indicated-Anticoagulated or INR therapeutic Consult Discharge Plan - Plan Instructions: Rivaroxaban (By mouth), Pulmonary Embolism (DC), Rib Fracture (DC ), Rib Fracture (GEN) Referrals: Linette Teran DO [Primary Care Provider] - 03/14/16 10:30 am (F/u with PCP in a week for hospital d/c f/u, this is 2nd time he got DVT/PE, need further hypercoagulable workup or referral to hematology/oncology, f/u on uncontrolled DM II) Flores Aguirre MD [Non-Partnered Physician] - (Please schedule an appointment to see his primary cardiothoracic surgeon and bring imaging CD from [place] to her to compare CT chest image that [facility] has from two months ago, f /u on hx of lung cancer and adenopathy) <Hugh Peguero - Last Filed: 03/09/16 15:06> Date of Encounter: 03/08/16 - Assessment and plan (1) Saddle embolism of pulmonary artery Status: Acute Qualifiers: Chronicity: acute Acute cor pulmonale presence: without acute cor pulmonale Qualified Code(s): I26.92 - Saddle embolus of pulmonary artery without acute cor pulmonale (2) DVT (deep venous thrombosis) Status: Acute Qualifiers: DVT location: lower extremity Affected thrombotic vein of extremity: unspecified vein of extremity Laterality: right Chronicity: acute Qualified Code(s): I82.401 - Acute embolism and thrombosis of unspecified deep veins of right lower extremity (3) DM (diabetes mellitus), type 2 Status: Acute Qualifiers: Diabetes mellitus complication status: with hyperglycemia Diabetes mellitus alf insulin use: without alf use Qualified Code(s): E11.65 - Type 2 diabetes mellitus with hyperglycemia (4) History of lobectomy of lung Status: Chronic (5) History of lung cancer Status: Acute - Constitutional Vitals: Temp Pulse Resp BP Pulse Ox 98.3 F 77 15 107/78 95 03/08/16 07:00 03/08/16 07:00 03/08/16 07:00 03/08/16 07:00 03/08/16 09:20 Internal Medicine: Result - Labs CBC & Chem 7: 03/06/16 03:49 03/06/16 03:49 - ABG Interpretation ABG results: PT/INR, D-dimer PT 12.3 Seconds (9.4-12.1) H 03/06/16 03:49 - Attending Attestation I examined this patient and my medical decision-making was reviewed with the Resident Physician on 03/08/16. I agree with the documented findings, disposition and treatment plan as described except to the extent set forth below. Mr. Mcrae is ready to go home. His echo did not show R heart failure/strain. Exam Alert. Comfortable Heart reg No wheeze Plan D/C home. Oxygen script written - pt to self pay. Follow up with PCP and oncologist
[2016-03-08] MEDS: Cholecalciferol (D-3) 1,000 UNIT TABLET PO SCH (08:37)
[2016-03-08] MEDS: Insulin LISPRO 300 UNITS/3 ML VIAL SQ SCH ×2 (08:37→12:17)
[2016-03-08] MEDS: *HR* Rivaroxaban 15 MG TABLET PO SCH (08:38)
[2016-03-08] MEDS: METOPROLOL TARTRATE 25 MG PO SCH (08:38)
[2016-03-08] MEDS: Aspirin 81 MG TAB.CHEW PO SCH (08:40)
== END 2016-03-08 12:59 | disposition home or self-care (01) | DRG 176 ==
LOC: EMEROO 18:50 → 2NENU 21:57
PROVIDERS: ADMIT Internal Medicine; ATTEND Internal Medicine